=== PATIENT | female | born 1980 | race Caucasian/White ===

== ENCOUNTER 2017-06-22 19:43 | Inpatient (IN) | payer OTHER ==
[2017-06-22] MEDS ORDERED: Lactated Ringer's 1,000 ML IV SCH (20:00)
[2017-06-22] MEDS ORDERED: cefOXitin IV 2 gm in Dextrose 2 GM/50 ML BAG IVPB ONE (20:18)
[2017-06-22] MEDS ORDERED: Sodium Citrate/Citric Acid 15 ml Sol PO ONE (20:18)
[2017-06-22 20:52] LABS: BASO % 0.2 % (0.0-2.0); EOS % 0.3 % (0.0-4.0); HEMOGLOBIN 11.7 g/dL (11.0-16.0); LYMPH # 1.9 K/uL (1.0-4.3); LYMPH % 21.7 % (20.0-40.0); MEAN CELL VOLUME 76.3 fL (81.0-99.0); MEAN CORPUSCULAR HEMOGLOBIN 24.6 pg (27.0-31.0); MEAN CORPUSCULAR HGB CONC 32.3 g/dL (33.0-37.0); MEAN PLATELET VOLUME 8.6 fL (7.2-11.7); MONO # 0.5 K/uL (0.0-0.8); MONO % 6.1 % (0.0-10.0); NEUT # 6.4 K/uL (1.8-7.0); NEUT % 71.7 % (50.0-75.0); NRBC % 0.1 % (0.0-2.0); RBC 4.74 Mil/uL (3.80-5.20); RED CELL DISTRIBUTION WIDTH 17.7 % (11.5-14.5); WHITE BLOOD COUNT 8.9 K/uL (4.8-10.8)
[2017-06-22] MEDS ORDERED: Morphine 1 mg/ml preservative-free Inj(Duramorph) ONE (20:53)
[2017-06-22 20:57] LABS: SQUAMOUS EPITHIAL 3 /hpf (0-5); URINE BACTERIA OCC (<OCC); URINE BILIRUBIN NEGATIVE (NEGATIVE); URINE CLARITY Hazy (Clear); URINE COLOR Straw (YELLOW); URINE GLUCOSE (UA) NORMAL (Normal); URINE LEUKOCYTE ESTERASE NEG Leu/uL (Negative); URINE NITRATE NEGATIVE (NEGATIVE); URINE PROTEIN NEGATIVE (NEGATIVE); URINE UROBILINOGEN NORMAL mg/dL (0.2-1.0)
[2017-06-22 20:58] LABS: URINE BLOOD 1+ (NEGATIVE)
[2017-06-22] MEDS ORDERED: cefOXitin 2 GM in Sodium Chloride 0.9% 100 ML IV ONE (21:00)
[2017-06-22 21:04] LABS: ALBUMIN 3.6 g/dL (3.5-5.0); ALT/SGPT 25 U/L (9-52); AST/SGOT 28 U/L (14-36); BLOOD UREA NITROGEN 6 mg/dL (7-17); GFR AFRICAN-AMERICAN > 60; GFR NON-AFRICAN AMERICAN > 60
[2017-06-22] MEDS ORDERED: Oxytocin 10 Units/ml Inj ONE (21:04)
--- NOTE | 2017-06-22 21:58 | OBHP ---
Datetime: 06/22/2017 20:29 IP Adm Impression: Term, intrauterine IP Admit Plan: Admit to unit Admit Comment, IP Provider: CC: Uterine Contraction HPI: Patient is 36 year old at 37.4 weeks at with LMP (10/02/16) with EDC (07/06/17) previus kenia mao who presents to [facility] with complaints of contractions that started at 5:30pm with contractions being 5 minutes apart for 1 hour incrasing to every 2 since arrival, 02/14 intsnetiy over preivuos sk in incision. Patient denies vaginal bleeding , lof. Patient reports that she felt the baby move 30 minutes before she came. OB Hx: G1: Male infant, for breech, [birth year] 05, 2010, 3kgs, Annabelle G2: Present Director Patient Accounting Hx: Menarche: 17 Tri[place]: 17/ regular/ 3 days Denies hx of STI, ovarian cyst and fibroid PMHx: Denies PSHx: Polio surgery Medications: PNV Allergies: NKDA FHx: Mother: Healthy and Father: healthy Social Hx: Denies hx of tobacco, drugs and ETOH VS: WNL PE: see above A/P: Patient is 36 year at 37.4 previous ceseaertn seciton catie , possibe uterine rupt ure 1. Admit to labor and delivery 2. CEFM 3. Admission labs: see order 4. Preparation for 5. Plans discusse with attending Presentation-Admit: Vertex FHR - Baseline A Provider: 150 Membranes, Provider: Intact Contraction Comments Provider: 2 Comments, ACOG Physical Exam: Gen: Nad Cardio: RRR, normal S1, S2 Pulm: CTA bilaterally Abd: Soft, gravid Ext: No clubbing, no edema and no cyanosis (Annotations: Data stored by CPN on behalf of user) Gestation - Est Wks by US: 37.4 IP Hx Assessment: The History has been Reviewed and is Current EGA AdmitDate IP: 37.4 IP Chief Complaint: Uterine contractions NICHD Variability Prov Fetus A: Moderate 6-25bpm FHR Category Provider Fetus A: Category I NICHD Decel Fetus A IP Provider: None; Prolonged Dilatation, Provider: 4 Effacement, Provider: 70 Station, Provider: -2
[2017-06-22] MEDS ORDERED: Oxycodone/Acetaminophen 5/325 mg Tab PO PRN (22:00)
--- NOTE | 2017-06-22 22:00 | OBDS ---
MATERNAL INFORMATION Provider Comments: live male infant uteiren window 9,9 ebl 800 ml normal apeparing uture, tubes and ovaries with anterio uterien adhesions to anteri abodmianl wall, uanbel to exteriorse auteurs pedicatircan prfsen for deliveyr LABOR SUMMARY EDC: 07/01/2017 00:00
--- NOTE | 2017-06-22 22:05 | PCM.SURG1 ---
Surgeon's Initial Post Op Note - Surgeon's Notes Surgeon: Wanda Rosado MD [employer] Supervisor: Chris Peace MD, Becky Gallego DO Type of Anesthesia: Spinal Pre-Operative Diagnosis: Prevuious cesearen section contractn in labor Operative Findings: live male ifnant, unterien windwon, normal apperint tubes and ovaries, pedcatirin present for dleivyer. apts 9,9 ebl 800 ml, anterior adhesins. Dr Chris Peace was surigcal assistan and present for entire case and essential in gainign entry, retricatin,e xpousre, holding bladder debbie, hepign to delivyer infant, clsing all layres, obtianign hemotasis Post-Operative Diagnosis: same as above Operation Performed: Repeat low transverse ceesearen section Specimen/Specimens Removed: placenta Estimated Blood Loss: EBL {In ML}: 800 Blood Products Given: N/A Drains Used: No Drains Post-Op Condition: Good Date of Surgery/Procedure: 06/22/17 Time of Surgery/Procedure: 20:35
[2017-06-22] MEDS ORDERED: DiphenhydrAMINE 50 mg/ml Inj IVP PRN (22:10)
[2017-06-22] MEDS ORDERED: Naloxone 0.4 mg/ml Inj (Adult) IVP PRN (22:10)
[2017-06-23] MEDS: Simethicone 80 mg Chewtab PO SCH ×5 (02:19→22:11)
--- NOTE | 2017-06-23 03:42 | OP ---
PROCEDURE DATE: 06/22/2017 SURGEON: Wanda Rosado MD DENTAL TECHNICIAN METAL: Chris Peace MD TYPE OF ANESTHESIA: Spinal. PREOPERATIVE DIAGNOSIS: Previous section, catie in labor. POSTOPERATIVE DIAGNOSIS: Previous section, catie in labor. OPERATIVE FINDINGS: Live male infant, normal-appearing tubes and ovaries. Crna was present for the delivery. Apgars 9 and 9, anterior adhesions, unable to exteriorize the uterus. Dr. Chris Peace, the surgical nurse was present for the entire case, assisted essentially in gaining entry, retraction, exposure, holding the bladder blade, helping to deliver the , closing all layers, obtaining hemostasis. OPERATION PERFORMED: Repeat low-transverse section. SPECIMEN REMOVED: Placenta. ESTIMATED BLOOD LOSS: 800 mL. BLOOD PRODUCTS: None. COMPLICATIONS: None. DESCRIPTION OF PROCEDURE: The patient is a 36-year-old, para one, at 37 plus weeks with previous section, who came in complaining of contractions initially every 5 minutes since 5:30, but increasing every two, upon arrival 02/14 . Denies leakage of fluid or vaginal bleeding with good movement. The patient was reporting pain with increasing and radiating to back. She was given with no improvement with intense flank pain. The patient was counseled on repeat section. All risks, benefits, alternatives, indications of repeat section not limited to bleeding, infection, risks of injury to bowel, bladder, other organs. The patient was taken to the operating room where she was given general anesthesia. Once she was found to be adequate, she was then positioned on the operating table in dorsal supine position with legs supported using stirrups. The patient was then prepped and draped in the usual sterile fashion. A time-out confirmed correct patient and correct procedure. The patient was given perioperative prophylactic antibiotics. A Pfannenstiel skin incision was made with a scalpel and carried down to the underlying fascia all the way down. The fascia was bluntly in the midline. The incision was carried down laterally. The rectus muscles were then bluntly in the midline. The peritoneum was then identified. The uterus was then identified. The uterine incision was then made with a scalpel and this was carried down laterally bluntly and the infant head was delivered spontaneously with meconium noted, followed by delivery of the shoulders, followed by delivery of the body. The nuchal cord was clamped and cut. Baby was handed off to the awaiting turbo generator oiler. Cord blood and cord gases were collected and sent x2. The placenta was then delivered. The uterus was unable to be exteriorized due to adhesions. The uterus was then cleared off all clots and debris. The uterine incision was repaired with 0-Vicryl in a running continuous locked fashion. The second layer of the same suture was used to close the uterus in a running imbricating manner. There was good hemostasis noted at the uterine incision site. The rectus and peritoneum was then reapproximated with 2-0 chromic in a running continuous fashion. Fascia was then reapproximated with 0 Vicryl in a running continuous fashion. The skin was reapproximated with bipin. At the end of the procedure, all needles, sponge, and instrument counts were noted to be correct x2. The patient tolerated the procedure well and was transferred to the recovery room in stable condition. Wanda Rosado MD
[2017-06-23] MEDS: cefOXitin IV 1 gm in Dextrose 1 GM/50 ML BAG IVPB SCH ×3 (04:45→20:50)
[2017-06-23 07:54] LABS: BASO % 0.1 % (0.0-2.0); EOS % 0.1 % (0.0-4.0); LYMPH # 1.1 K/uL (1.0-4.3); LYMPH % 14.5 % (20.0-40.0); MEAN CELL VOLUME 76.7 fL (81.0-99.0); MEAN CORPUSCULAR HEMOGLOBIN 25.2 pg (27.0-31.0); MEAN CORPUSCULAR HGB CONC 32.8 g/dL (33.0-37.0); MEAN PLATELET VOLUME 8.2 fL (7.2-11.7); MONO # 0.4 K/uL (0.0-0.8); MONO % 5.1 % (0.0-10.0); NEUT # 6.1 K/uL (1.8-7.0); NEUT % 80.2 % (50.0-75.0); NRBC % 0.1 % (0.0-2.0); RBC 3.28 Mil/uL (3.80-5.20); RED CELL DISTRIBUTION WIDTH 17.7 % (11.5-14.5); WHITE BLOOD COUNT 7.6 K/uL (4.8-10.8)
[2017-06-23 08:06] LABS: HEMOGLOBIN 8.3 g/dL (11.0-16.0)
[2017-06-23] MEDS: Oxycodone/Acetaminophen 5/325 mg Tab PO PRN ×3 (11:35→22:14)
[2017-06-23] MEDS: Prenatal Multivit/Folic Acid/Iron Tab PO SCH (11:35)
--- NOTE | 2017-06-23 16:54 | OBPPN ---
Datetime: 06/23/2017 10:27 PP Pain Prov: Within normal limits PP Nausea Prov: Denies PP Flatus Prov: No PP BM Prov: No PP Breasts Prov: Normal PP Heart Prov: Normal PP Lungs Prov: Normal PP Abdomen/Uterus Prov: Normal PP Lochia Prov: Normal PP Vulva/Perineum Prov: Normal PP CVA Tenderness Prov: Normal PP Extremities Prov: Normal PP C/S Incision Prov: Normal PP Progress Prov: Normal PP Impression Prov: Normal progression PP Plan Prov: Continue present management PP Progress Note Prov: Patient seen and examined at bedside. Per nursing staff, no acute events over night. Patient reports pain is well controlled. Requesting a diet and something to drink. Patient has not been to the restroom to check for lochia. Breast and bottle feeding. Not passing flatus, no BM y et. Denies headache, chest pain, shortness of breath, fever, or chills. VS: T 98.9, HR 85, BP 104/64 Gen: NAD, AAOx3 CV: RRR, S1, S2 Pulm: CTA b/l Abd: Soft, nontender, fundus is firm 1 cm above umbilicus Ext: Warm. No cyanosis, edema, or calf tenderness Labs: 8.9>11.7/36.2<204 7.6>8.3/25.2<153 O positive, rubella immune A/P: 36 yo at 37 weeks 4 days with previous section who presented catie now s/ p section POD#1 - VSS, pain well controlled - Continue pain regimen; motrin and percocet - Continue Cefoxitin for 24 hour course - Continue senna and colace - d/c bal today; encourage OOB to chair - Start CLD and then advance diet as tolerated - Encourage - Continue routine care - Plan discussed with Dr. Alonzo mabry iwth above pt seen ad examined amangetn as above Vital Signs Provider PP: Reviewed; Within Normal Limits
[2017-06-23] MEDS ORDERED: Bisacodyl 5mg EC Tab PO ONE (22:01)
[2017-06-24] MEDS: Oxycodone/Acetaminophen 5/325 mg Tab PO PRN ×4 (03:33→22:02)
--- NOTE | 2017-06-24 07:06 | OBPPN ---
Datetime: 06/24/2017 07:01 PP Pain Prov: Within normal limits PP Nausea Prov: Denies PP Flatus Prov: Yes PP BM Prov: No PP Breasts Prov: Normal PP Heart Prov: Normal PP Lungs Prov: Normal PP Abdomen/Uterus Prov: Normal PP Lochia Prov: Normal PP Vulva/Perineum Prov: Normal PP CVA Tenderness Prov: Normal PP Extremities Prov: Normal PP C/S Incision Prov: Normal PP Progress Prov: Normal PP Impression Prov: Normal progression PP Plan Prov: Continue present management PP Progress Note Prov: pt seen and examined anf report pain is conroled with pain meidcaion. pt ambu aitng to bathroom, dnies any cp, sob, lightheadness, dizzyness, heavy vagianl bleeding. pt is breast feeding, dies any fever chills, nause, vmiting VSS PE GEN NAD AA Ox 3 ERSP: CTAB?l CVS: RRR, +S1/S2 ABD: soft, NT/ND no guaridng no rebound tendnerss, no rigidyt FUND*U: Firm, at lelve o fumcilsu INCISN C/?DI healign well VE: moderage lochia, non foulselling EX:T negative homans sign, no calf tnedners b/l A?P s/p RLTC POD #2 doign well -pain manamgnet -f/u am labs -enocurage breast feedign/ambuation -addomina binder, incentive psirometer IP PP Procedures: None Vital Signs Provider PP: Reviewed; Within Normal Limits
[2017-06-24 07:18] LABS: BASO % 0.1 % (0.0-2.0); EOS % 0.1 % (0.0-4.0); HEMOGLOBIN 8.9 g/dL (11.0-16.0); LYMPH # 1.3 K/uL (1.0-4.3); LYMPH % 12.7 % (20.0-40.0); MEAN CELL VOLUME 76.6 fL (81.0-99.0); MEAN CORPUSCULAR HEMOGLOBIN 25.3 pg (27.0-31.0); MEAN PLATELET VOLUME 7.7 fL (7.2-11.7); MONO # 0.5 K/uL (0.0-0.8); MONO % 4.6 % (0.0-10.0); NEUT # 8.6 K/uL (1.8-7.0); NEUT % 82.5 % (50.0-75.0); RBC 3.5 Mil/uL (3.80-5.20); RED CELL DISTRIBUTION WIDTH 18.3 % (11.5-14.5); WHITE BLOOD COUNT 10.4 K/uL (4.8-10.8)
[2017-06-24] MEDS: Simethicone 80 mg Chewtab PO SCH ×4 (09:06→22:03)
[2017-06-24] MEDS: Prenatal Multivit/Folic Acid/Iron Tab PO SCH (09:07)
[2017-06-24] MEDS ORDERED: Influenza Vaccine 60 mcg/0.5 mL SYR (4YR UP) IM ONE (09:38)
[2017-06-25] MEDS: Oxycodone/Acetaminophen 5/325 mg Tab PO PRN ×2 (02:40→09:23)
[2017-06-25 08:39] VITALS: BP 105/72; PULSE 85; RESP 18; TEMP 97.8; O2SAT 100
[2017-06-25] MEDS: Simethicone 80 mg Chewtab PO SCH (09:23)
--- NOTE | 2017-06-26 15:34 | OBDCSUM ---
Datetime: 06/25/2017 08:18 Discharge Instructions, Provider: Routine instructions given Discharge Diagnosis, Provider: Term Delivered Contraception discussed, Prov: Yes Contraception after Delivery: Not Planning to Use
--- NOTE | 2017-06-26 15:35 | OBPPN ---
Datetime: 06/25/2017 09:56 PP Pain Prov: Within normal limits PP Nausea Prov: Denies PP Flatus Prov: Yes PP BM Prov: No PP Heart Prov: Normal PP Lungs Prov: Normal PP Abdomen/Uterus Prov: Normal PP Lochia Prov: Normal PP Extremities Prov: Normal PP C/S Incision Prov: Normal PP Progress Prov: Normal PP Impression Prov: Normal progression PP Plan Prov: Continue present management; Discharge PP Progress Note Prov: Patient seen and examined at bedside. Per nursing no acute events overnight. Patient is doing well, admits to having pain at this incision site and back pain. Lochia is mild. Amb ulating and tolerating diet. Passing flatus, no BM. Urinating without difficulty. . Mitch es headaches, dizziness, cp, palpitations, sob, urinary symptoms. VS: 105/72 85 97.8 Gen: AAOx3 Abd: Soft, fundus firm below umbilicus, incision c/d/i with bipin Ext: No clubbing, cyanosis, edema; no calf tenderness Labs: 8.9>11.7/36.2<204 7.6>8.3/25.2<153 10.4>8.9/26.8<183 O positive Rubella immune A/P: 36 year old at 37w4d s/p RLTCD POD#3 -Stable, afebrile -Pain control: Percocet and motrin prn -Encourage ambulation and hydration -Encnourage and ISS use -Continue routine care -D/C home today: pelvic rest x 8 weeks, f/u with Dr Rosado in 1 week for staple removal -Plan discussed with Dr Alonzo Craft DO PGY-1 'agree wit above pt renita and examiend stalbe fo rdc rto 1 week precuaitn give Vital Signs Provider PP: Reviewed; Within Normal Limits
== END 2017-06-25 13:48 | disposition home or self-care (01) | DRG 766 ==
LOC: C.EROB 19:43 → C.4D 20:18 → C.4M 06-23 02:08
PROVIDERS: ADMIT Obstetrics & Gynecology; ATTEND Obstetrics & Gynecology
PROC: 10D00Z1 Extraction of Products of Conception, Low, Open Approach (ICD-10-PCS; principal; 2017-06-22)
DX: O34.211 Maternal care for low transverse scar from previous cesarean delivery (principal); O75.82 Onset (spontaneous) of labor after 37 completed weeks of gestation but before 39 completed weeks gestation, with delivery by (planned) cesarean section; Z3A.37 37 weeks gestation of pregnancy; Z37.0 Single live birth